=== PATIENT | male | born 1965 | race Caucasian/White ===

== ENCOUNTER 2021-03-19 23:17 | Inpatient (IN) | payer BC, SELFPAY ==
[2021-03-20] MEDS ORDERED: Dexamethasone 10 MG/ML VIAL ONE (00:29)
[2021-03-20] MEDS ORDERED: Ventolin HFA Inhaler 60 PUFF INHALER ONE (00:30)
[2021-03-20 01:05] LABS: ALT (SGPT) 19 U/L (8-55); AST (SGOT) 24 U/L (5-34); Albumin 3.6 g/dL (3.5-5.0); Alkaline Phosphatase 108 U/L (40-110); Anion Gap 19 mmol/L (10-20); BUN (Urea Nitrogen) 13 mg/dL (8.4-25.7); Bilirubin, Total 0.7 mg/dL (0.2-1.2); Calc. Creatinine Clearance 0 mL/min (70-130); Calcium 9.7 mg/dL (7.8-10.44); Carbon Dioxide 22 mmol/L (22-29); Chloride 102 mmol/L (98-107); Globulin 3.5 g/dL (2.4-3.5); Glucose 240 mg/dL (70-105); Potassium 4.3 mmol/L (3.5-5.1); Protein, Total 7.1 g/dL (6.0-8.3); Sodium 139 mmol/L (136-145)
[2021-03-20 01:25] LABS: #Monocytes 0.6 10x3/uL (0.0-1.1); #Neutrophils 6.3 10x3/uL (1.5-8.4); %Basophils 0.4 % (0.0-2.0); %Eosinophils 0.5 % (0.0-6.0); %Lymphocytes 12.1 % (18.0-47.0); %Monocytes 7.6 % (0.0-10.0); %Neutrophils 77.3 % (40.0-75.0); Hemoglobin 14.9 g/dL (13.5-17.5); Mean Corpuscular HGB CONC 32.9 g/dL (32.0-36.0); Mean Corpuscular Volume 91.1 fl (81.2-95.1); Platelet Count 407 10x3/uL (150-450); RBC Distribution Width 13.2 % (11.5-14.5); Red Blood Cell (RBC) Count 4.97 10x6/uL (4.32-5.72); White Blood Cell (WBC) Count 8.2 10x3/uL (3.5-10.5)
[2021-03-20 01:32] LABS: SARS-CoV-2 NAA Rapid Test DETECTED (NotDetected)
[2021-03-20 04:03] VITALS: BMI 32.5
[2021-03-20] MEDS ORDERED: Senokot S 8.6-50 MG TAB PO PRN (05:26)
[2021-03-20] MEDS ORDERED: Dextrose 50% Abboject 50 ML SYRINGE SLOW IVP PRN (05:37)
[2021-03-20] MEDS ORDERED: Dextrose 5% in Water 1,000 ML IV PRN (05:37)
[2021-03-20 07:11] LABS: CRP (Inflammatory) 14.74 mg/dL (= or < 0.5); Magnesium 2.3 mg/dL (1.6-2.6)
[2021-03-20] MEDS ORDERED: REMDESIVIR 200 MG in Sodium Chloride 0.9% 250 ML 210 ML IV SCH (09:00)
[2021-03-20 11:24] LABS: Hemoglobin A1c 10.6 % (4.0-6.0)
[2021-03-20] MEDS: Aspirin 325 MG TAB PO SCH (11:41)
[2021-03-20] MEDS: Dexamethasone 4 mg/ml Vial SLOW IVP SCH (11:41)
[2021-03-20] MEDS: Cholecalciferol 1,000 UNITS (25 MCG) TAB PO SCH (11:41)
[2021-03-20] MEDS: Ascorbic Acid 500 mg Chewable Tablet PO SCH (11:41)
[2021-03-20] MEDS: Zinc Sulfate 220 MG CAP PO SCH (11:42)
[2021-03-20] MEDS: Acetaminophen 325 MG TAB PO PRN (11:42)
[2021-03-20] MEDS: HumaLOG 300 UNITS/3 ML VIAL SC PRN ×2 (13:39→18:47)
[2021-03-20] MEDS: Enoxaparin Sodium 40 MG/0.4 ML SYRINGE SC SCH (13:39)
[2021-03-21 06:06] LABS: Hemoglobin 13.8 g/dL (13.5-17.5); Mean Corpuscular HGB CONC 33.2 g/dL (32.0-36.0); Mean Corpuscular Hemoglobin 30.4 pg (27.0-33.0); Mean Corpuscular Volume 91.6 fl (81.2-95.1); Mean Platelet Volume 10.2 fl (7.4-10.4); Platelet Count 407 10x3/uL (150-450); RBC Distribution Width 13.2 % (11.5-14.5); Red Blood Cell (RBC) Count 4.54 10x6/uL (4.32-5.72); White Blood Cell (WBC) Count 8.2 10x3/uL (3.5-10.5)
[2021-03-21 06:27] LABS: Anion Gap 18 mmol/L (10-20); BUN (Urea Nitrogen) 22 mg/dL (8.4-25.7); CRP (Inflammatory) 9.34 mg/dL (= or < 0.5); Calc. Creatinine Clearance 145 mL/min (70-130); Calcium 9.8 mg/dL (7.8-10.44); Carbon Dioxide 21 mmol/L (22-29); Chloride 104 mmol/L (98-107); Glucose 322 mg/dL (70-105); Potassium 4.3 mmol/L (3.5-5.1); Sodium 139 mmol/L (136-145)
[2021-03-21 06:30] LABS: ALT (SGPT) 20 U/L (8-55); AST (SGOT) 28 U/L (5-34); Albumin 3.2 g/dL (3.5-5.0); Alkaline Phosphatase 88 U/L (40-110); Bilirubin, Direct 0.1 mg/dL (0.1-0.3); Bilirubin, Total 0.4 mg/dL (0.2-1.2); Protein, Total 7.1 g/dL (6.0-8.3)
[2021-03-21 06:57] LABS: MDiff Complete? YES
[2021-03-21 07:42] LABS: Band 12 % (5-11); Lymphocytes 10 % (21-51); Monocytes 7 % (0-10); Myelocyte 2 % (0-0); Neutrophil 65 % (42-75); Reactive Lymphocytes 4 % (0-10)
[2021-03-21 07:43] LABS: Anisocytosis SLIGHT = 6-15 cells (100X) (0-5/hpf); Giant Platelets SLIGHT; Large Platelets MODERATE; Macrocytosis SLIGHT = 6-15 cells (100X) (0-5/hpf); Microcytosis SLIGHT = 6-15 cells (100X) (0-5/hpf); Platelet Morphology Comment Appears Increased
[2021-03-21] MEDS ORDERED: Guaifenesin DM 100-10/5 ML UDCUP PO PRN (08:09)
[2021-03-21] MEDS ORDERED: Dextrose 5% in Water 1,000 ML IV PRN (08:10)
[2021-03-21] MEDS ORDERED: Dextrose 50% Abboject 50 ML SYRINGE SLOW IVP PRN (08:10)
[2021-03-21] MEDS: Enoxaparin Sodium 40 MG/0.4 ML SYRINGE SC SCH (10:55)
[2021-03-21] MEDS: Zinc Sulfate 220 MG CAP PO SCH (10:55)
[2021-03-21] MEDS: Cholecalciferol 1,000 UNITS (25 MCG) TAB PO SCH (10:55)
[2021-03-21] MEDS: Ascorbic Acid 500 mg Chewable Tablet PO SCH (10:55)
[2021-03-21] MEDS: Aspirin 325 MG TAB PO SCH (10:55)
[2021-03-21] MEDS: Dexamethasone 4 mg/ml Vial SLOW IVP SCH (10:55)
[2021-03-21] MEDS: REMDESIVIR 100 MG in Sodium Chloride 0.9% 250 ML 230 ML IV SCH (10:56)
[2021-03-21] MEDS: Acetaminophen 325 MG TAB PO PRN (10:56)
[2021-03-21] MEDS: HumaLOG 300 UNITS/3 ML VIAL SC PRN ×2 (14:00→21:15)
[2021-03-21] MEDS: Benzonatate 100 MG CAP PO PRN (20:58)
[2021-03-22] MEDS: HumaLOG 300 UNITS/3 ML VIAL SC PRN ×2 (05:30→20:45)
[2021-03-22 06:24] LABS: ALT (SGPT) 25 U/L (8-55); AST (SGOT) 21 U/L (5-34); Albumin 3.3 g/dL (3.5-5.0); Alkaline Phosphatase 83 U/L (40-110); Bilirubin, Direct 0.2 mg/dL (0.1-0.3); Bilirubin, Total 0.4 mg/dL (0.2-1.2); Protein, Total 7.2 g/dL (6.0-8.3)
[2021-03-22] MEDS: Aspirin 325 MG TAB PO SCH (09:59)
[2021-03-22] MEDS: Enoxaparin Sodium 40 MG/0.4 ML SYRINGE SC SCH (09:59)
[2021-03-22] MEDS: Dexamethasone 4 mg/ml Vial SLOW IVP SCH (09:59)
[2021-03-22] MEDS: Cholecalciferol 1,000 UNITS (25 MCG) TAB PO SCH (09:59)
[2021-03-22] MEDS: Zinc Sulfate 220 MG CAP PO SCH (09:59)
[2021-03-22] MEDS: Ascorbic Acid 500 mg Chewable Tablet PO SCH (09:59)
[2021-03-22] MEDS: REMDESIVIR 100 MG in Sodium Chloride 0.9% 250 ML 230 ML IV SCH (13:00)
[2021-03-23] MEDS: HumaLOG 300 UNITS/3 ML VIAL SC PRN ×3 (05:30→22:35)
[2021-03-23 05:47] LABS: ALT (SGPT) 25 U/L (8-55); AST (SGOT) 17 U/L (5-34); Albumin 3.1 g/dL (3.5-5.0); Alkaline Phosphatase 86 U/L (40-110); Bilirubin, Direct 0.2 mg/dL (0.1-0.3); Bilirubin, Total 0.4 mg/dL (0.2-1.2); Protein, Total 6.4 g/dL (6.0-8.3)
[2021-03-23] MEDS: Enoxaparin Sodium 40 MG/0.4 ML SYRINGE SC SCH (07:49)
[2021-03-23] MEDS: Cholecalciferol 1,000 UNITS (25 MCG) TAB PO SCH (07:49)
[2021-03-23] MEDS: Aspirin 325 MG TAB PO SCH (07:49)
[2021-03-23] MEDS: Zinc Sulfate 220 MG CAP PO SCH (07:49)
[2021-03-23] MEDS: Dexamethasone 4 mg/ml Vial SLOW IVP SCH (07:49)
[2021-03-23] MEDS: Ascorbic Acid 500 mg Chewable Tablet PO SCH (07:49)
[2021-03-23] MEDS: REMDESIVIR 100 MG in Sodium Chloride 0.9% 250 ML 230 ML IV SCH (13:30)
[2021-03-23] MEDS: Benzonatate 100 MG CAP PO PRN (22:27)
[2021-03-24] MEDS: HumaLOG 300 UNITS/3 ML VIAL SC PRN ×2 (05:43→14:08)
[2021-03-24 06:48] LABS: ALT (SGPT) 23 U/L (8-55); AST (SGOT) 22 U/L (5-34); Alkaline Phosphatase 81 U/L (40-110); Bilirubin, Direct 0.1 mg/dL (0.1-0.3); Bilirubin, Total 0.4 mg/dL (0.2-1.2); Protein, Total 6.2 g/dL (6.0-8.3)
[2021-03-24] MEDS: Ascorbic Acid 500 mg Chewable Tablet PO SCH (08:46)
[2021-03-24] MEDS: Enoxaparin Sodium 40 MG/0.4 ML SYRINGE SC SCH (08:47)
[2021-03-24] MEDS: Zinc Sulfate 220 MG CAP PO SCH (08:47)
[2021-03-24] MEDS: Cholecalciferol 1,000 UNITS (25 MCG) TAB PO SCH (08:47)
[2021-03-24] MEDS: Dexamethasone 4 mg/ml Vial SLOW IVP SCH (08:47)
[2021-03-24] MEDS: Aspirin 325 MG TAB PO SCH (08:47)
[2021-03-24] MEDS: REMDESIVIR 100 MG in Sodium Chloride 0.9% 250 ML 230 ML IV SCH (14:07)
[2021-03-24 17:28] VITALS: BP 120/81; TEMP 97.4
[2021-03-24] MEDS ORDERED: Lantus 1000 UNITS/10 ML VIAL SC SCH (21:00)
== END 2021-03-24 19:39 | disposition home or self-care (01) | DRG 177 ==
LOC: CSHERS 23:17 → CSHERHOLD 03-20 03:26 → OBSVTOIN 03-20 05:26 → CSHTELE 03-20 08:03
PROVIDERS: ADMIT Family Medicine; ATTEND Family Medicine
PROC: 8E0ZXY6 Isolation (ICD-10-PCS; principal; 2021-03-20)
PROC: XW033E5 Introduction of Remdesivir Anti-infective into Peripheral Vein, Percutaneous Approach, New Technology Group 5 (ICD-10-PCS; 2021-03-20)
DX: U07.1 COVID-19 (principal); J12.82 Pneumonia due to coronavirus disease 2019; J96.01 Acute respiratory failure with hypoxia; E66.9 Obesity, unspecified; Z68.32 Body mass index [BMI] 32.0-32.9, adult; E11.65 Type 2 diabetes mellitus with hyperglycemia
CPT/HCPCS: 36415; 36416; 71045; 71275; 80048; 80053; 80076; 83036; 83735; 83880; 84484; 85025; 85379; 86140; 93005; 94760; 96374; J1100; J1650; J1815; J7050; U0002